=== PATIENT | male | born 1940 | race Caucasian/White ===

== ENCOUNTER 2017-05-12 19:34 | Emergency (ER) | payer OTHER, BC ==
[2017-05-12 19:58] VITALS: BP 150/88; PULSE 66; TEMP 97.3; BMI 26.3
--- NOTE | 2017-05-12 20:01 | PDOC ---
History of Present Illness - General History Source: Patient Exam Limitations: No Limitations - History of Present Illness Initial Comments: 05/12/17 20:10 The patient is a 76 year old male with significant past medical history of prostate CA, CAD, hypertension, hyperlipidemia, thyroid disease, fatty liver, diverticulosis, GERD, esophagitis, hemorrhoids, and colon polyps who presents to the ED for feeling jittery prior to arrival. Patient reports he was in his usual state of health while gardening around the house when he suddenly felt jittery. Denies lightheadedness, diaphoresis, SOB, chest pain, palpitations, jaw pain, shoulder pain, arm pain, leg swelling, nausea, or vomiting. At time of evaluation, he states he is currently feeling chills, but no fever. The patient denies cough, abdominal pain, and diarrhea. Allergies: NKDA Social History: No alcohol, tobacco, or drug use reported. Past Surgical History: s/p cardiac stents x3 PCP: Dr. Leobardo Herrera <Erika Durán - Last Filed: 05/12/17 21:21> - General History Source: Patient <Lisandro Dunbar - Last Filed: 05/12/17 21:51> - General Chief Complaint: Weakness Stated Complaint: DEHYDRATION Time Seen by Provider: 05/12/17 19:53 Past History <Erika Durán - Last Filed: 05/12/17 21:21> - Past Medical History Anemia: No Asthma: No Cancer: Yes (PROSTATE) Cardiac Disorders: Yes (CAD) CVA: No CHF: No Dementia: No Diabetes: No GI Disorders: Yes (DIVERTICULOSIS;GERD;ESOPHAGITIS;GASTRTIS;H/H;HEMOROIDS;COLON POLYPS) Disorders: No HTN: Yes Hypercholesterolemia: Yes Liver Disease: Yes (FATTY LIVER) Seizures: No Thyroid Disease: No - Surgical History Abdominal Surgery: No Cardiac Surgery: Yes (STENTS X 3) Cholecystectomy: No Lung Surgery: No Neurologic Surgery: No - Family Disease History Family Disease History: Heart Disease: Father, Mother - Immunization History Immunization Up to Date: Yes - Psycho/Social/Smoking Cessation Hx Anxiety: Yes Suicidal Ideation: No Smoking History: Never smoked Have you smoked in the past 12 months: No Hx Alcohol Use: No Drug/Substance Use Hx: No Substance Use Type: None Hx Substance Use Treatment: No <Lisandro Dunbar Last Filed: 05/12/17 21:51> - Past Medical History Allergies/Adverse Reactions: Allergies Allergy/AdvReac Type Severity Reaction Status Date / Time No Known Allergies Allergy Verified 05/12/17 19:48 Home Medications: Ambulatory Orders Aspirin 81 mg PO DAILY 03/25/14 Levothyroxine [Synthroid -] 25 mcg PO DAILY 03/25/14 Metoprolol Succinate [Toprol XL -] 25 mg PO DAILY 03/25/14 Rosuvastatin Calcium [Crestor] 20 mg PO DAILY 03/25/14 Review of Systems - Review of Systems Able to Perform ROS?: Yes Comments:: 05/12/17 20:10 CONSTITUTIONAL: +chills, jittery Absent: fever, diaphoresis, generalized weakness, malaise, loss of appetite HEENT: Absent: rhinorrhea, nasal congestion, throat pain, throat swelling, difficulty swallowing, mouth swelling, ear pain, eye pain, visual Changes CARDIOVASCULAR: Absent: chest pain, syncope, palpitations, irregular heart rate, lightheadedness , peripheral edema RESPIRATORY: Absent: cough, shortness of breath, dyspnea with exertion, orthopnea, wheezing, stridor, hemoptysis GASTROINTESTINAL: Absent: abdominal pain, abdominal distension, nausea, vomiting, diarrhea, constipation, melena, hematochezia GENITOURINARY: Absent: dysuria, frequency, urgency, hesitancy, hematuria, flank pain, genital pain MUSCULOSKELETAL: Absent: myalgia, arthralgia, joint swelling SKIN: Absent: rash, itching, pallor NEUROLOGIC: Absent: headache, focal weakness or paresthesias, dizziness, unsteady gait, seizure, mental status changes, bladder or bowel incontinence <Erika Durán - Last Filed: 05/12/17 21:21> *Physical Exam - Vital Signs Last Vital Signs Temp Pulse Resp BP Pulse Ox 97.3 F L 66 18 150/88 100 05/12/17 19:49 05/12/17 19:49 05/12/17 19:49 05/12/17 19:49 05/12/17 19:49 - Physical Exam Comments: 05/12/17 20:10 GENERAL: Well developed, well nourished. Awake and alert. No acute distress. HEENT: Normocephalic, atraumatic. PERRLA, EOMI. Moist mucous membranes. Oropharynx is clear. NECK: Supple. Full ROM. No JVD. Carotid pulses 2+ and symmetric, without bruits. No thyromegaly. No lymphadenopathy. CARDIOVASCULAR: Regular rate and rhythm. No murmurs, rubs, or gallops. Distal pulses are 2+ and symmetric. PULMONARY: No evidence of respiratory distress. Lungs clear to auscultation bilaterally. No wheezing, rales or rhonchi. ABDOMINAL: Soft. Non-tender. Non-distended. No rebound or guarding. Normoactive bowel sounds. MUSCULOSKELETAL Normal range of motion at all joints. No bony deformities or tenderness. No CVA tenderness. EXTREMITIES: No cyanosis. No clubbing. No edema. No calf tenderness. SKIN: Warm and dry. Normal capillary refill. No rashes. No jaundice. NEUROLOGICAL: Alert, awake, appropriate. Cranial nerves 2-12 intact. Moving all extremities. No gross neurological deficits. <Erika Durán - Last Filed: 05/12/17 21:21> - Vital Signs Last Vital Signs Temp Pulse Resp BP Pulse Ox 97.3 F L 66 18 150/88 100 05/12/17 19:49 05/12/17 19:49 05/12/17 19:49 05/12/17 19:49 05/12/17 19:49 <Lisandro Dunbar - Last Filed: 05/12/17 21:51> Heart Score/ECG Review - ECG Impressions Comment:: 05/12/17 21:21 NSR @60bpm L anterior fascicular block Abnormal ECG <Erika Durán - Last Filed: 05/12/17 21:21> ED Treatment Course - LABORATORY CBC & Chemistry Diagram: 05/12/17 21:02 05/12/17 21:02 <Erika Durán - Last Filed: 05/12/17 21:21> - LABORATORY CBC & Chemistry Diagram: 05/12/17 21:02 05/12/17 21:02 <Lisandro Dunbar - Last Filed: 05/12/17 21:51> Medical Decision Making - Medical Decision Making 05/12/17 21:50 Dr. Dunbar: The scribe's documentation has been prepared under my direction and personally reviewed by me in its entirery. I confirm that the note above accurately reflects all work, treatment, procedures, and medical decision making performed by me. All studies Return to be negative. Patient will Be discharged. Advised to follow up with pcp if symptoms don't improve. Advised to avoid the heat <Lisandro Dunbar - Last Filed: 05/12/17 21:51> *DC/Admit/Observation/Transfer - Attestations Scribe Attestion: 05/12/17 20:11 Documentation prepared by Erika Durán, acting as medical record transcriber for Lisandro Dunbar MD/DO. <Erika Durán - Last Filed: 05/12/17 21:21> - Discharge Dispostion Admit: No <Lisandro Dunbar - Last Filed: 05/12/17 21:51> Diagnosis at time of Disposition: Lightheadedness - Discharge Dispostion Disposition: HOME Condition at time of disposition: Stable - Referrals Referrals: Leobardo Herrera MD [Primary Care Provider] - - Patient Instructions Printed Discharge Instructions: DI for Muscle Weakness Additional Instructions: Follow up with your doctor if symptoms don't improve. Return if you don't feel better. Avoid the heat for the next several days.
[2017-05-12] MEDS ORDERED: SODIUM CHLORIDE 1,000 ML IV STA (20:02)
[2017-05-12 20:45] LABS: URINE APPEARANCE CLEAR; URINE BILIRUBIN NEGATIVE (NEGATIVE); URINE BLOOD NEGATIVE (NEGATIVE); URINE COLOR COLORLESS; URINE GLUCOSE (UA) NEGATIVE (NEGATIVE); URINE KETONE NEGATIVE (NEGATIVE); URINE LEUK ESTERASE NEGATIVE (NEGATIVE); URINE NITRITE NEGATIVE (NEGATIVE); URINE PROTEIN NEGATIVE (NEGATIVE); URINE UROBILINOGEN NEGATIVE E.U./dl (0.2-1.0)
[2017-05-12 21:11] LABS: BASOPHIL 0.3 % (0-2.0); EOSINOPHIL 0.8 % (0-4.5); MCH 29.8 pg (25.7-33.7); MCHC 32.9 g/dl (32.0-35.9); MEAN CELL VOLUME 90.8 fl (80-96); MEAN PLT VOLUME 10.4 fl (7.5-11.1); NEUTROPHILS 74.7 % (42.8-82.8); PLATELET COUNT 87 K/MM3 (134-434); RDW 13.6 % (11.9-15.9); WHITE BLOOD COUNT 5.2 K/mm3 (4.0-10.0)
[2017-05-12 21:31] LABS: INR 1.04 (0.82-1.09); PROTHROMBIN TIME (PATIENT) 11.4 SEC (9.98-11.88)
[2017-05-12 21:37] LABS: ALBUMIN 4.1 g/dl (3.4-5.0); ANION GAP 8 (8-16); BILIRUBIN,TOTAL 0.6 mg/dL (0.2-1.0); CALCIUM 8.8 mg/dL (8.5-10.1); CO2 28 mmol/L (21-32); COCKROFT - GAULT 65.62; GLUCOSE,RANDOM 109 mg/dL (74-106); MAGNESIUM 2.4 mg/dL (1.8-2.4); SGOT/AST 34 U/L (15-37); SGPT/ALT 29 U/L (12-78); TOT PROT 6.9 g/dl (6.4-8.2)
[2017-05-12 21:41] LABS: ALK PHOS 80 U/L (45-117); TROPONIN I < 0.02 ng/ml (0.00-0.05)
[2017-05-12 22:18] LABS: PLATELET ESTIMATE DECREASED (NORMAL)
--- NOTE | 2017-05-13 10:51 | EKG ---
Test Reason : Blood Pressure : / mmHG Vent. Rate : 060 BPM Atrial Rate : 060 BPM P-R Int : 178 ms QRS Dur : 102 ms QT Int : 442 ms P-R-T Axes : 024 -55 037 degrees QTc Int : 442 ms NORMAL SINUS RHYTHM LEFT ANTERIOR FASCICULAR BLOCK ABNORMAL ECG WHEN COMPARED WITH ECG OF 31-JUL-2014 02:26, NO SIGNIFICANT CHANGE WAS FOUND Confirmed by RADHA RODRIGUEZ MD ([id number]) on 05/13/2017 10:50:41 AM Referred By: Confirmed By:RADHA RODRIGUEZ MD
== END 2017-05-12 21:57 | disposition home or self-care (01) ==
LOC: JER 19:34
PROC: 3E0337Z Introduction of Electrolytic and Water Balance Substance into Peripheral Vein, Percutaneous Approach (ICD-10-PCS; principal; 2017-05-12)
DX: R42 Dizziness and giddiness (principal); I10 Essential (primary) hypertension; I25.10 Atherosclerotic heart disease of native coronary artery without angina pectoris; E78.5 Hyperlipidemia, unspecified; E07.9 Disorder of thyroid, unspecified; K76.0 Fatty (change of) liver, not elsewhere classified; K21.9 Gastro-esophageal reflux disease without esophagitis
CPT/HCPCS: 36415; 80053; 81003; 82550; 82553; 83690; 83735; 84484; 85025; 85610; 93005; 93010; 96360; 99283-25

== ENCOUNTER 2018-09-22 21:57 | Observation (INO) | payer OTHER, BC ==
[2018-09-22 22:16] VITALS: BMI 26.6
[2018-09-22 23:22] LABS: BASO % 0.3 % (0-2.0); EOS % 2.1 % (0-4.5); HEMATOCRIT 42.5 % (35.4-49); LYMPH % 28.4 % (8-40); MCH 30.3 pg (25.7-33.7); MCHC 32.9 g/dl (32.0-35.9); MEAN CELL VOLUME 92.1 fl (80-96); MEAN PLT VOLUME 11.5 fl (7.5-11.1); NEUT % 59.2 % (42.8-82.8); PLATELET COUNT 96 K/MM3 (134-434); RBC 4.61 M/mm3 (4.00-5.60); RDW 13.3 % (11.9-15.9); WHITE BLOOD COUNT 4.3 K/mm3 (4.0-10.0)
[2018-09-22 23:34] LABS: PROTHROMBIN TIME (PATIENT) 11.8 SEC (9.7-13.0)
[2018-09-22] MEDS ORDERED: ASPIRIN 325 MG ENTERIC COATED TABLET (FP) PO ONE (23:35)
[2018-09-22] MEDS ORDERED: MAG HYDROX/AL HYDROX/SIMETH 30 ML UNIT-DOSE CUP PO ONE (23:35)
--- NOTE | 2018-09-22 23:51 | PDOC ---
History of Present Illness - General Exam Limitations: No Limitations - History of Present Illness Initial Comments: 09/23/18 01:36 Patient is a 78 year old male with a significant past medical history of prostate CA, CAD, hypertension, hyperlipidemia, thyroid disease, fatty liver, diverticulosis, GERD, esophagitis, hemorrhoids, and colon polyps, who presents to the ED with complaints of nausea that began x2 days ago. Patient reports experiencing intermittent episodes of nausea, as well as associated symptoms of abdominal distention and general sick feeling in his gut. He reports the last time he felt this sensation in his gut, he ended up getting x3 cardiac stents placed, prompting him to come into the ED for further evaluation. Patient reports normal food and liquid intake and states his last bowel movement was earlier today. Denies chest pain, Sob. Denies nausea, vomiting. Denies contact with sick individuals, out of state travelling. Denies dysuria,hematuria. Denies constipation, diarrhea. Denies trauma to affected area. Allergies: NKDA Social History: No alcohol, tobacco, or drug use reported. Past Surgical History: s/p cardiac stents x3 PCP: Dr. Leobardo Herrera <Atif Banks - Last Filed: 09/23/18 01:36> <Daylin Esposito - Last Filed: 09/23/18 04:17> - General Chief Complaint: Nausea Stated Complaint: NAUSEA/chest tightness Time Seen by Provider: 09/22/18 23:21 Past History <Atif Banks - Last Filed: 09/23/18 01:36> - Past Medical History Anemia: No Asthma: No Cancer: Yes (PROSTATE) Cardiac Disorders: Yes (CAD, 3 Stents placed 3 years ago) CVA: No COPD: No CHF: No Dementia: No Diabetes: No GI Disorders: Yes (DIVERTICULOSIS;GERD;ESOPHAGITIS;GASTRTIS;H/H;HEMOROIDS;COLON POLYPS) Disorders: No HTN: Yes Hypercholesterolemia: Yes Liver Disease: Yes (FATTY LIVER) Seizures: No Thyroid Disease: No - Surgical History Abdominal Surgery: No Cardiac Surgery: Yes (STENTS X 3) Cholecystectomy: No Lung Surgery: No Neurologic Surgery: No - Family Disease History Family Disease History: Heart Disease: Father, Mother - Immunization History Immunization Up to Date: Yes - Suicide/Smoking/Psychosocial Hx Smoking History: Never smoked Have you smoked in the past 12 months: No Information on smoking cessation initiated: No Hx Alcohol Use: No Drug/Substance Use Hx: No Substance Use Type: None Hx Substance Use Treatment: No <Daylin Esposito - Last Filed: 09/23/18 04:17> - Past Medical History Allergies/Adverse Reactions: Allergies Allergy/AdvReac Type Severity Reaction Status Date / Time No Known Allergies Allergy Verified 09/22/18 22:16 Home Medications: Ambulatory Orders Aspirin 81 mg PO DAILY 03/25/14 Levothyroxine [Synthroid -] 25 mcg PO DAILY 03/25/14 Metoprolol Succinate [Toprol XL -] 25 mg PO DAILY 03/25/14 Rosuvastatin Calcium [Crestor] 20 mg PO DAILY 03/25/14 Amlodipine Besylate 5 mg PO DAILY 09/22/18 Review of Systems - Review of Systems Able to Perform ROS?: Yes Comments:: 09/23/18 01:37 See HPI. All other systems reviewed and unremarkable <Atif Banks - Last Filed: 09/23/18 01:36> *Physical Exam - Vital Signs Last Vital Signs Temp Pulse Resp BP Pulse Ox 98.5 F 62 16 167/70 100 09/22/18 22:14 09/22/18 22:14 09/22/18 22:14 09/22/18 22:14 09/22/18 22:14 - Physical Exam Comments: 09/23/18 01:36 General Physical Exam: NAD EOMI, DYLON MMM, OP WNL NCAT, no midline cervical tenderness RRR, nl s1/s2, no m/r/g CTABL, no w/r/r Soft, NTND No edema, WWP, no rash Neuro grossly intact, gait WNL, moving all 4 A&O x 3, mood/affect WNL. <Atif Banks - Last Filed: 09/23/18 01:36> - Vital Signs Last Vital Signs Temp Pulse Resp BP Pulse Ox 98.5 F 62 16 167/70 100 09/22/18 22:14 09/22/18 22:14 09/22/18 22:14 09/22/18 22:14 09/22/18 22:14 <Daylin Esposito - Last Filed: 09/23/18 04:17> ED Treatment Course - LABORATORY CBC & Chemistry Diagram: 09/22/18 23:00 09/22/18 23:00 - ADDITIONAL ORDERS Additional order review: Laboratory Results 09/22/18 09/22/18 23:00 23:00 PT with INR 11.80 INR 1.00 Sodium 136 Potassium 4.0 Chloride 100 Carbon Dioxide 28 Anion Gap 7 L BUN 14 Creatinine 0.9 Creat Clearance w eGFR > 60 Random Glucose 87 Calcium 8.9 Total Bilirubin 0.6 AST 36 ALT 30 Alkaline Phosphatase 84 Creatine Kinase 129 Troponin I < 0.02 B-Natriuretic Peptide 223.1 Total Protein 7.4 Albumin 4.3 Lipase 139 09/22/18 23:00 RBC 4.61 MCV 92.1 MCHC 32.9 RDW 13.3 MPV 11.5 H D Neutrophils % 59.2 D Lymphocytes % 28.4 D Monocytes % 10.0 Eosinophils % 2.1 D Basophils % 0.3 <Atif Banks - Last Filed: 09/23/18 01:36> - LABORATORY CBC & Chemistry Diagram: 09/22/18 23:00 09/22/18 23:00 - ADDITIONAL ORDERS Additional order review: Laboratory Results 09/22/18 23:00 PT with INR 11.80 INR 1.00 09/22/18 23:00 RBC 4.61 MCV 92.1 MCHC 32.9 RDW 13.3 MPV 11.5 H D Neutrophils % 59.2 D Lymphocytes % 28.4 D Monocytes % 10.0 Eosinophils % 2.1 D Basophils % 0.3 <Daylin Esposito - Last Filed: 09/23/18 04:17> Medical Decision Making - Medical Decision Making 09/22/18 23:47 78yoM hx of CAD, stent x 3, GERD, esophagitis, HTN presnets w/ 3d of intermittent "sick" feeling in his epigastric area and abd distension after reportedly eating a large meal. SYmptoms have been progressive over last few days. Pt states that the last time he felt like this, he was admitted and 3 stents were placed. - labs - ekg - cxr - cardaic moniotr - maalox, ASA - admit for serial troponins and further cardaic testing. <Daylin Esposito - Last Filed: 09/23/18 04:17> *DC/Admit/Observation/Transfer - Attestations Scribe Attestion: 10/24/18 01:37 Documentation prepared by Atif Banks, acting as bilingual medical assistant for Daylin Esposito MD. <Atif Banks - Last Filed: 09/23/18 01:36> - Discharge Dispostion Decision to Admit order: Yes <Daylin Esposito - Last Filed: 09/23/18 04:17> Diagnosis at time of Disposition: Chest pain - Discharge Dispostion Condition at time of disposition: Stable - Referrals Referrals: Leobardo Herrera MD [Primary Care Provider] - - Patient Instructions - Post Discharge Activity
[2018-09-22 23:58] LABS: ALBUMIN 4.3 g/dl (3.4-5.0); ALK PHOS 84 U/L (45-117); ANION GAP 7 MMOL/L (8-16); BILIRUBIN,TOTAL 0.6 mg/dL (0.2-1); BLOOD UREA NITROGEN 14 mg/dL (7-18); CALCIUM 8.9 mg/dL (8.5-10.1); CHLORIDE 100 mmol/L (98-107); CO2 28 mmol/L (21-32); CREATININE 0.9 mg/dL (0.55-1.3); GLUCOSE,RANDOM 87 mg/dL (74-106); LIPASE 139 U/L (73-393); N-TERMINAL BNP 223.1 pg/ml (5-450); SGOT/AST 36 U/L (15-37); SGPT/ALT 30 U/L (13-61); SODIUM 136 mmol/L (136-145); TOT PROT 7.4 g/dl (6.4-8.2)
[2018-09-23] MEDS ORDERED: RANITIDINE HCL 150 MG TABLET (FP) PO ONE (03:05)
[2018-09-23] MEDS ORDERED: RANITIDINE HCL 150 MG TABLET (FP) ONE (03:14)
[2018-09-23] MEDS ORDERED: ASPIRIN 325 MG ENTERIC COATED TABLET (FP) ONE (03:14)
[2018-09-23] MEDS ORDERED: MAG HYDROX/AL HYDROX/SIMETH 30 ML UNIT-DOSE CUP ONE (03:15)
--- NOTE | 2018-09-23 05:36 | HP ---
CHIEF COMPLAINT: abdominal discomfort PCP: HISTORY OF PRESENT ILLNESS: Patient is a 78 y/o male with a history of prostate CA, CAD, HTN, HLD, and hypothyroidism who presents with abdominal discomfort. Patient reports he had a large dinner two nights ago and an acidic breakfast yesterday. Afterward he felt a mid sternal discomfort. He reports he had the same feeling in 2009 where he then needed three stents. He mostly feels anxious about the discomfort because it is similar to the CAD. He denies any chest pain, pressure, tightness , diaphoresis, numbness or tingling. He denies nausea, vomiting, diarrhea, or constipation. Patient excercises on the treadmill 30 minutes a day and denies any angina. He used to take pantoprazole for GERD, but stopped taking it years ago. ER course was notable for: (1) (2) (3) Recent Travel: PAST MEDICAL HISTORY: prostate CA, CAD, HTN, HLD, and hypothyroidism PAST SURGICAL HISTORY: Cardiac stent x 3 in 2009, TURP 2 years ago Social History: Smoking: Alcohol: Drugs: Family History: Allergies No Known Allergies Allergy (Verified 09/22/18 22:16) HOME MEDICATIONS: Home Medications Medication Instructions Recorded Aspirin 81 mg PO DAILY 03/25/14 Levothyroxine [Synthroid -] 25 mcg PO DAILY 03/25/14 Metoprolol Succinate [Toprol XL -] 25 mg PO DAILY 03/25/14 Rosuvastatin Calcium [Crestor] 20 mg PO DAILY 03/25/14 Amlodipine Besylate 5 mg PO DAILY 09/22/18 REVIEW OF SYSTEMS CONSTITUTIONAL: Absent: fever, chills, diaphoresis, generalized weakness, malaise, loss of appetite, weight change HEENT: Absent: rhinorrhea, nasal congestion, throat pain, throat swelling, difficulty swallowing, mouth swelling, ear pain, eye pain, visual changes CARDIOVASCULAR: Absent: chest pain, syncope, palpitations, irregular heart rate, lightheadedness , peripheral edema RESPIRATORY: Absent: cough, shortness of breath, dyspnea with exertion, orthopnea, wheezing, stridor, hemoptysis GASTROINTESTINAL: abdominal discomfort Absent: abdominal pain, abdominal distension, nausea, vomiting, diarrhea, constipation, melena, hematochezia GENITOURINARY: Absent: dysuria, frequency, urgency, hesitancy, hematuria, flank pain, genital pain MUSCULOSKELETAL: Absent: myalgia, arthralgia, joint swelling, back pain, neck pain SKIN: Absent: rash, itching, pallor HEMATOLOGIC/IMMUNOLOGIC: Absent: easy bleeding, easy bruising, lymphadenopathy, frequent infections ENDOCRINE: Absent: unexplained weight gain, unexplained weight loss, heat intolerance, cold intolerance NEUROLOGIC: Absent: headache, focal weakness or paresthesias, dizziness, unsteady gait, seizure, mental status changes, bladder or bowel incontinence PSYCHIATRIC: Absent: anxiety, depression, suicidal or homicidal ideation, hallucinations. PHYSICAL EXAMINATION Vital Signs - 24 hr 09/22/18 22:14 Temperature 98.5 F Pulse Rate 62 Respiratory 16 Rate Blood Pressure 167/70 O2 Sat by Pulse 100 Oximetry (%) GENERAL: Awake, alert, and fully oriented, in no acute distress. HEAD: Normal with no signs of trauma. EYES: Pupils equal, round and reactive to light, extraocular movements intact, EARS, NOSE, THROAT: Moist mucous membranes. NECK: Normal range of motion, supple without lymphadenopathy, JVD, LUNGS: Breath sounds equal, clear to auscultation bilaterally. No wheezes, and no crackles. No accessory muscle use. HEART: Regular rate and rhythm, normal S1 and S2 without murmur, rub or gallop. ABDOMEN: Soft, nontender, not distended, normoactive bowel sounds, no guarding, no rebound, no masses. MUSCULOSKELETAL: Normal range of motion at all joints. No bony deformities or tenderness. LOWER EXTREMITIES: 2+ pulses, warm, well-perfused. No calf tenderness. No peripheral edema. NEUROLOGICAL: Normal speech. PSYCHIATRIC: Cooperative. Good eye contact. Appropriate mood and affect. SKIN: Warm, dry, normal turgor, no rashes or lesions noted, normal capillary refill. CBC, BMP 09/22/18 23:00 09/22/18 23:00 ASSESSMENT/PLAN: Patient is a 78 y/o male with a history of prostate CA, CAD, HTN, HLD, and hypothyroidism who presents with abdominal discomfort. 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 Lopez #hypothyroidism - continue levothyroxine 25 mcg - f/u TSH #HTN - amlodipine 10 mg daily #Chronic thryombocytopenia - continue to monitor - previous visits platelets in the 90's Visit type - Emergency Visit Emergency Visit: Yes ED Registration Date: 09/23/18 Care time: The patient presented to the Emergency Department on the above date and was hospitalized for further evaluation of their emergent condition. - New Patient This patient is new to me today: Yes Date on this admission: 09/23/18 - Critical Care Critical Care patient: No
--- NOTE | 2018-09-23 06:25 | PN ---
Teaching Attending Note Name of Resident: Damaris Ocampo ATTENDING PHYSICIAN STATEMENT I saw and evaluated the patient. I reviewed the resident's note and discussed the case with the resident. I agree with the resident's findings and plan as documented. SUBJECTIVE: Seen and examined; 78 y/o CM with a PMH of CAD, HTN, HLD presents to the ER with sx suspicious to him for ACS. In 2009 he had some sort of cardiac event that lead to him getting 3 total stents that were done at [facility]. He had a stress test shortly thereafter and has not since had any procedures. He is compliant with his ASA, Statin, and BB. Pain was characterized as indigestion symptoms at his epigastric region; nothing makes the pain better or worse, was not doing activity when it happened. Not currently having pain. He never had any chest pain, persay, but this was the same exact atypical presentation he had at that juncture. EKG nsr without any significant ST-T changes, troponin negative in ER. Given his history and the presentation and the time since his last stress test will admit for stress test. Found incidentally on labs to have thrombocytopenia which has been present in our system since at least 2013. PMH: As stated PSH: No cardiopulmonary procedures FH: Asked and noncontributory Social: Very active; not a current smoker or drinker OBJECTIVE: VSS, labs reviewed NAD, resting in bed, AAO RRR s1/2 no mgr Lungs CTAB with sym exp NT ND +BS No edema, no JVD ASSESSMENT AND PLAN: 1) Rule Out ACS (epigastric discomfort) -Atypical sx but given the fact that this was how his first event presented will work this up as this sensation could be his anginal equivelant. Trend troponin, monitor telemetry. Exercise ST in the AM. -Continue home CAD meds -Start protonix 40 PO QD in case this is purely indigestion. 2) H/O CAD s/p PCI -Continuing home ASA, statin, BB 3) HTN -Increasing amlodipine to 10 4) HLD -Check lipids 5) Chronic Thrombocytopenia -Known since 2013; trend. Check peripheral smear, HIV, HCV. Followup as OP. No bleeding and known chronic issue that isn't acutely worse. Full Code Provided negative stress test and cardiac workup and resolution of his sx he should be able to be DC in <24 hours
[2018-09-23] MEDS: LEVOTHYROXINE NA 25 MCG TABLET (FP) PO SCH ×2 (08:46→10:35)
[2018-09-23] MEDS ORDERED: ASPIRIN 81 MG CHEWABLE TABLETS ONE (09:35)
[2018-09-23] MEDS ORDERED: PANTOPRAZOLE 40 MG TABLET (FP) ONE (09:35)
[2018-09-23] MEDS ORDERED: amLODIPine BESYLATE 5 MG TABLET (FP) ONE (09:36)
[2018-09-23] MEDS ORDERED: metoPROLOL SUCCINATE 25 MG TAB.SR.24H (FP) PO SCH (10:00)
[2018-09-23] MEDS ORDERED: amLODIPine BESYLATE 10 MG TABLET (FP) PO SCH (10:00)
[2018-09-23] MEDS ORDERED: PANTOPRAZOLE 40 MG TABLET (FP) PO SCH (10:00)
[2018-09-23] MEDS ORDERED: ASPIRIN 81 MG CHEWABLE TABLETS PO SCH (10:00)
[2018-09-23] MEDS ORDERED: LEVOTHYROXINE NA 25 MCG TABLET (FP) ONE (10:09)
--- NOTE | 2018-09-23 10:12 | CON.CARD ---
Consult Consult Specialty:: Cardiology Referred by:: Dayo Reason for Consultation:: chest pain - History of Present Illness Chief Complaint: chest pain History of Present Illness: 78M h/o CAD s/p PCI in 2010, HTN, HLD p/w chest discomort. He felt like he had indigestion and upper abdominal discomfort at rest, which was similar to presentation in 2010 where he received 3 stents. EKG unremarkable, trop neg x 2 in ER. BP elevated, amlodipine was increased to 10 mg daily. Currently asymptomatic, no chest pain, dyspnea, palps, dizziness. Notes he used to be on PPI for reflux, he stopped this several months ago. has been eating moer acidic foods that trigger reflux and episodes of abd discomfort over lsat two days have been after eating large meals. - History Source History Provided By: Patient Limitations to Obtaining History: No Limitations - Past Medical History Cardio/Vascular: Yes: CAD - Alcohol/Substance Use Hx Alcohol Use: No - Smoking History Smoking history: Never smoked Have you smoked in the past 12 months: No Home Medications - Allergies Allergies/Adverse Reactions: Allergies Allergy/AdvReac Type Severity Reaction Status Date / Time No Known Allergies Allergy Verified 09/22/18 22:16 - Home Medications Home Medications: Ambulatory Orders Aspirin 81 mg PO DAILY 03/25/14 Levothyroxine [Synthroid -] 25 mcg PO DAILY 03/25/14 Metoprolol Succinate [Toprol XL -] 25 mg PO DAILY 03/25/14 Rosuvastatin Calcium [Crestor] 20 mg PO DAILY 03/25/14 Amlodipine Besylate 5 mg PO DAILY 09/22/18 Family Disease History - Family Disease History Family History: Unremarkable Review of Systems - Review of Systems Constitutional: reports: No Symptoms Eyes: reports: No Symptoms HENT: reports: No Symptoms Neck: reports: No Symptoms Cardiovascular: reports: No Symptoms Respiratory: reports: No Symptoms Gastrointestinal: reports: Abdominal Pain Genitourinary: reports: No Symptoms Musculoskeletal: reports: No Symptoms Integumentary: reports: No Symptoms Neurological: reports: No Symptoms Endocrine: reports: No Symptoms Hematology/Lymphatic: reports: No Symptoms Psychiatric: reports: No Symptoms Vital Signs: Vital Signs Temperature 98.4 F 09/23/18 08:00 Pulse Rate 58 L 09/23/18 08:00 Respiratory Rate 18 09/23/18 08:00 Blood Pressure 152/76 09/23/18 08:00 O2 Sat by Pulse Oximetry (%) 98 09/23/18 05:30 Constitutional: Yes: No Distress, Calm Eyes: Yes: Conjunctiva Clear, EOM Intact HENT: Yes: Atraumatic, Normocephalic Neck: Yes: Supple, Trachea Midline Respiratory: Yes: Regular, CTA Bilaterally Gastrointestinal: Yes: Normal Bowel Sounds, Soft Renal/: Yes: WNL Cardiovascular: Yes: Regular Rate and Rhythm JVD: No Carotid Bruit: No PMI: Non-Displaced Heart Sounds: Yes: S1, S2 Musculoskeletal: No: Back Pain Extremities: No: Cyanosis Edema: No Peripheral Pulses WNL: Yes Peripheral Pulses: 2+ Left Doralis Pedis, 2+ Right Dorsalis Pedis Integumentary: No: Jaundice Neurological: Yes: Alert, Oriented ...Motor Strength: WNL Psychiatric: Yes: Alert, Oriented - Other Data Labs, Other Data: CBC, BMP 09/22/18 23:00 09/22/18 23:00 INR, PTT INR 1.00 (0.83-1.09) 09/22/18 23:00 Troponin, BNP 09/22/18 09/23/18 23:00 03:30 Troponin I < 0.02 < 0.02 B-Natriuretic Peptide 223.1 Troponin, BNP 09/22/18 09/23/18 23:00 03:30 Troponin I < 0.02 < 0.02 B-Natriuretic Peptide 223.1 Assessment/Plan CXR: no acute process EKG: sinus, LAFB 78M h/o CAD s/p PCI in 2009, HTN, HLD p/w chest discomort Chest discomfort - trop neg x 2, EKG stable compared to prior - discomfort now resolved - h/o GERD and has been off PPI, recent episodes related to large meals and acidic foods. PPI restarted as well - change to nuc stress given h/o CAD and similar to prior symptoms - if stress test benign no further inpatient work up, follow up with Dr. Garces CAD - continue aspirin, statin, bb HTN - amlodipine increased to 10 mg daily today, observe trend - continue metoprolol HLD - continue crestor
--- NOTE | 2018-09-23 11:26 | EKG ---
Test Reason : Blood Pressure : / mmHG Vent. Rate : 060 BPM Atrial Rate : 060 BPM P-R Int : 172 ms QRS Dur : 104 ms QT Int : 454 ms P-R-T Axes : 021 -47 036 degrees QTc Int : 454 ms NORMAL SINUS RHYTHM LEFT ANTERIOR FASCICULAR BLOCK ABNORMAL ECG WHEN COMPARED WITH ECG OF 12-MAY-2017 20:38, NO SIGNIFICANT CHANGE WAS FOUND Confirmed by GA FONTANEZ, YAZAN ([id number]) on 09/23/2018 11:26:19 AM Referred By: Confirmed By:YAZAN KOROMA MD
--- NOTE | 2018-09-23 11:56 | PN ---
Progress Note, Physician - Current Medication List Current Medications: Active Medications Amlodipine Besylate (Norvasc -) 10 mg PO DAILY [facility] Last Admin: 09/23/18 09:37 Dose: 10 mg Aspirin (Asa -) 81 mg PO DAILY [facility] Last Admin: 09/23/18 09:37 Dose: 81 mg Levothyroxine Sodium (Synthroid -) 25 mcg PO DAILY@0700 [facility] Last Admin: 09/23/18 10:35 Dose: 25 mcg Metoprolol Succinate (Toprol Xl -) 12.5 mg PO DAILY [facility] Last Admin: 09/23/18 09:37 Dose: 12.5 mg Pantoprazole Sodium (Protonix -) 40 mg PO DAILY [facility] Last Admin: 09/23/18 09:37 Dose: 40 mg Rosuvastatin Calcium (Crestor -) 20 mg PO [facility] - Objective Vital Signs: Vital Signs Temperature 98.4 F 09/23/18 08:00 Pulse Rate 58 L 09/23/18 08:00 Respiratory Rate 18 09/23/18 08:00 Blood Pressure 152/76 09/23/18 08:00 O2 Sat by Pulse Oximetry (%) 98 09/23/18 05:30 Labs: CBC, BMP 09/22/18 23:00 09/22/18 23:00 INR, PTT INR 1.00 (0.83-1.09) 09/22/18 23:00
[2018-09-23] MEDS ORDERED: REGADENOSON 0.4 MG/5 ML PRE-FILLED SYRINGE IVPUSH ONE ×2 (12:15→13:48)
--- NOTE | 2018-09-23 16:59 | DS ---
Physical Examination Vital Signs: Vital Signs Temperature 98.4 F 09/23/18 08:00 Pulse Rate 58 L 09/23/18 08:00 Respiratory Rate 18 09/23/18 08:00 Blood Pressure 152/76 09/23/18 08:00 O2 Sat by Pulse Oximetry (%) 98 09/23/18 05:30 Constitutional: Yes: Well Nourished, No Distress, Calm Cardiovascular: Yes: WNL, Regular Rate and Rhythm. No: Murmur Respiratory: Yes: WNL, Regular, CTA Bilaterally. No: Accessory Muscle Use, SOB , Tachypnea, Wheezes Gastrointestinal: Yes: WNL, Normal Bowel Sounds, Soft. No: Distention, Tenderness Renal/: Yes: WNL Musculoskeletal: Yes: WNL Edema: No Neurological: Yes: WNL, Alert, Oriented ...Motor Strength: WNL Psychiatric: Yes: WNL, Alert Labs: CBC, BMP 09/22/18 23:00 09/22/18 23:00 Discharge Summary Reason For Visit: NAUSEA Current Active Problems Chest pain (Acute) Hospital Course: 78 year old male pmh significant for CAD s/p stent in 2009 admitted for evaluation of chest pain. All cardiac work up negative. Pt symptomatic. Nuclear stress test negative for ischemic findings. Amlodipine increased to 10mg for better bp control. Otherwise, vitals stable, labs unremarkable. Pt is medically stable for discharge home. Outpt follow up recommended Condition: Stable - Instructions Diet, Activity, Other Instructions: continue home meds as directed by pcp amlodipine increased for better bp control protonix daily f/u as directed Referrals: Leobardo Herrera MD [Primary Care Provider] - 1 Week Jimmy Garces MD [Staff Physician] - 1 Week Disposition: HOME - Home Medications Comprehensive Discharge Medication List: Ambulatory Orders Aspirin 81 mg PO DAILY 03/25/14 Levothyroxine [Synthroid -] 25 mcg PO DAILY 03/25/14 Rosuvastatin Calcium [Crestor] 20 mg PO DAILY 03/25/14 Amlodipine Besylate 10 mg PO DAILY 09/22/18 Metoprolol Succinate [Toprol XL -] 12.5 mg PO DAILY tab.sr.24h 09/23/18 Pantoprazole Sodium [Protonix -] 40 mg PO DAILY #30 tablet.ec 09/23/18
[2018-09-23 17:05] VITALS: BP 143/76; PULSE 74; TEMP 98.2
[2018-09-23] MEDS ORDERED: ROSUVASTATIN CA 20 MG TABLET (FP) PO SCH (22:00)
== END 2018-09-23 17:45 | disposition home or self-care (01) ==
LOC: JER 21:57 → JERBED 09-23 04:17
PROVIDERS: ADMIT Internal Medicine; ATTEND Internal Medicine
PROC: 3E033GC Introduction of Other Therapeutic Substance into Peripheral Vein, Percutaneous Approach (ICD-10-PCS; principal; 2018-09-23)
DX: R07.89 Other chest pain (principal); I10 Essential (primary) hypertension; E78.5 Hyperlipidemia, unspecified; I25.10 Atherosclerotic heart disease of native coronary artery without angina pectoris; K76.0 Fatty (change of) liver, not elsewhere classified; K21.9 Gastro-esophageal reflux disease without esophagitis; E03.9 Hypothyroidism, unspecified; D69.6 Thrombocytopenia, unspecified; Z85.46 Personal history of malignant neoplasm of prostate; Z95.5 Presence of coronary angioplasty implant and graft
CPT/HCPCS: 36415; 71046-TC-FY; 78452-TC; 80053; 82550; 83690; 83880; 84484; 85025; 85610; 93005; 93010; 93017; 96374; 99284-25; A9502; G0378; J2785

== ENCOUNTER 2022-08-26 20:25 | Emergency (ER) | payer OTHER, BC ==
[2022-08-26 20:42] VITALS: BP 151/56; PULSE 56; RESP 19; TEMP 98.1; BMI 25.0
[2022-08-26] MEDS ORDERED: TETANUS AND DIPHTHERIA TOXOID 0.5 ML DISP.SYRIN IM ONE (21:45)
[2022-08-26] MEDS ORDERED: DIPHTH,PERTUSS(ACELL),TET 0.5 ML DISP.SYRIN IM ONE (22:38)
== END 2022-08-26 23:56 | disposition home or self-care (01) ==
LOC: JER 20:25
PROC: 3E0234Z Introduction of Serum, Toxoid and Vaccine into Muscle, Percutaneous Approach (ICD-10-PCS; principal; 2022-08-26)
DX: S00.83XA Contusion of other part of head, initial encounter (principal); W01.0XXA Fall on same level from slipping, tripping and stumbling without subsequent striking against object, initial encounter
CPT/HCPCS: 70450-TC; 70486-TC; 72125-TC; 99285-25

== ENCOUNTER 2023-11-05 03:55 | Day surgery (SDC) | payer OTHER, BC ==
[2023-11-03 12:47] VITALS: BMI 25.8
[~2023-11-05 03:55] MED LIST: ACETAMINOPHEN 325 MG TABLET (FP) PO PRN; BSS (NA/CA/MG/K) BALANCED SALT SOLUTION OPHTH SOLN 15 ML BOTTLE OD ONE; CHONDROITIN SU A/HYALUR SOD 1 KIT IO ONE; EPINEPHrine/PF 1 MG/1 ML (1:1,000) AMPULE SQ ONE; LIDOCAINE HCL 1% PRESERVATIVE FREE - 30ML VIAL IO ONE; POVIDONE-IODINE 5% OPHTHALMIC PREP 30 ML SOLUTION OD ONE; TETRACAINE 0.5% OPHTH SOLN 2 ML BOTTLE TP ONE
[2023-11-05] MEDS ORDERED: BSS (NA/CA/MG/K) BALANCED SALT SOLUTION OPHTH SOLN 15 ML BOTTLE ONE (07:42)
[2023-11-05] MEDS ORDERED: EPINEPHrine/PF 1 MG/1 ML (1:1,000) AMPULE ONE (07:42)
[2023-11-05] MEDS ORDERED: TETRACAINE 0.5% OPHTH SOLN 2 ML BOTTLE ONE (07:42)
[2023-11-05] MEDS ORDERED: POVIDONE-IODINE 5% OPHTHALMIC PREP 30 ML SOLUTION ONE (07:43)
[2023-11-05] MEDS ORDERED: LIDOCAINE HCL/PF 1% SDV 5ML VIAL ONE (07:47)
[2023-11-05] MEDS ORDERED: OFLOXACIN 0.3% OPHTHALMIC SOLUTION 5 ML BOTTLE ONE (07:59)
[2023-11-05] MEDS ORDERED: KETOROLAC TROMETHAMINE 0.5% EYE DROP 1 DROP DROPS ONE (07:59)
[2023-11-05] MEDS ORDERED: PHENYLEPHRINE 2.5% OPTHALMIC DROP 2ML BOTTLE ONE (07:59)
[2023-11-05] MEDS ORDERED: TROPICAMIDE 1% OPHTH SOLN 15 ML BOTTLE ONE (07:59)
[2023-11-05] MEDS ORDERED: CYCLOPENTOLATE HCL 1% OPHTH SOLN 2 ML BOTTLE ONE (07:59)
[2023-11-05] MEDS: KETOROLAC TROMETHAMINE 0.5% EYE DROP 1 DROP DROPS OP SCH ×3 (08:15→08:45)
[2023-11-05] MEDS: TROPICAMIDE 1% OPHTH SOLN 15 ML BOTTLE OP SCH ×3 (08:15→08:45)
[2023-11-05] MEDS: CYCLOPENTOLATE HCL 1% OPHTH SOLN 2 ML BOTTLE OP SCH ×3 (08:15→08:45)
[2023-11-05] MEDS: PHENYLEPHRINE 2.5% OPHTH SOLN 15 ML BOTTLE OP SCH ×3 (08:16→08:45)
[2023-11-05] MEDS: OFLOXACIN 0.3% OPHTHALMIC SOLUTION 5 ML BOTTLE OP SCH ×3 (08:16→08:45)
[2023-11-05] MEDS ORDERED: MIDAZOLAM HCL 2 MG/2 ML SINGLE DOSE VIAL ONE (10:01)
[2023-11-05] MEDS ORDERED: TETRACAINE 0.5% OPHTH SOLN 2 ML BOTTLE TP ONE (10:03)
[2023-11-05] MEDS ORDERED: POVIDONE-IODINE 5% OPHTHALMIC PREP 30 ML SOLUTION OD ONE (10:06)
[2023-11-05] MEDS ORDERED: BSS (NA/CA/MG/K) BALANCED SALT SOLUTION OPHTH SOLN 15 ML BOTTLE OD ONE (10:12)
[2023-11-05] MEDS ORDERED: CHONDROITIN SU A/HYALUR SOD 1 KIT IO ONE (10:12)
[2023-11-05] MEDS ORDERED: LIDOCAINE HCL 1% PRESERVATIVE FREE - 30ML VIAL IO ONE (10:12)
[2023-11-05] MEDS ORDERED: EPINEPHrine/PF 1 MG/1 ML (1:1,000) AMPULE SQ ONE (10:33)
[2023-11-05 11:08] VITALS: RESP 20
[2023-11-05 11:55] VITALS: BP 160/70; PULSE 52; TEMP 97.8
== END 2023-11-05 11:30 | disposition home or self-care (01) ==
LOC: JASU-SURG 03:55
PROVIDERS: ATTEND Ophthalmology
PROC: 08RJ3JZ Replacement of Right Lens with Synthetic Substitute, Percutaneous Approach (ICD-10-PCS; principal; 2023-11-05 10:00)
DX: H26.9 Unspecified cataract (principal)
CPT/HCPCS: V2632

== ENCOUNTER 2023-12-31 04:26 | Day surgery (SDC) | payer OTHER, BC ==
[2023-12-29 15:51] VITALS: BMI 25.8
[~2023-12-31 04:26] MED LIST changes: -BSS (NA/CA/MG/K) BALANCED SALT SOLUTION OPHTH SOLN 15 ML BOTTLE OD ONE; -CHONDROITIN SU A/HYALUR SOD 1 KIT IO ONE; +CYCLOPENTOLATE HCL 1% OPHTH SOLN 2 ML BOTTLE OP SCH; -LIDOCAINE HCL 1% PRESERVATIVE FREE - 30ML VIAL IO ONE; -POVIDONE-IODINE 5% OPHTHALMIC PREP 30 ML SOLUTION OD ONE; -TETRACAINE 0.5% OPHTH SOLN 2 ML BOTTLE TP ONE
[2023-12-31] MEDS ORDERED: LIDOCAINE HCL/PF 1% SDV 5ML VIAL ONE (07:27)
[2023-12-31] MEDS ORDERED: BUPIVACAINE HCL/PF 0.75% 10 ML VIAL ONE (07:28)
[2023-12-31] MEDS ORDERED: LIDOCAINE HCL/PF 2% SDV 5ML VIAL ONE (07:28)
[2023-12-31] MEDS ORDERED: TETRACAINE 0.5% OPHTH SOLN 2 ML BOTTLE ONE (07:29)
[2023-12-31] MEDS ORDERED: POVIDONE-IODINE 5% OPHTHALMIC PREP 30 ML SOLUTION ONE (07:29)
[2023-12-31] MEDS ORDERED: PHENYLEPHRINE 2.5% OPTHALMIC DROP 2ML BOTTLE ONE (08:22)
[2023-12-31] MEDS ORDERED: TROPICAMIDE 1% OPHTH SOLN 15 ML BOTTLE ONE (08:23)
[2023-12-31] MEDS ORDERED: KETOROLAC TROMETHAMINE 0.5% EYE DROP 1 DROP DROPS ONE (08:23)
[2023-12-31] MEDS ORDERED: CYCLOPENTOLATE HCL 1% OPHTH SOLN 2 ML BOTTLE ONE (08:23)
[2023-12-31] MEDS ORDERED: OFLOXACIN 0.3% OPHTHALMIC SOLUTION 5 ML BOTTLE ONE ×2 (08:23→08:27)
[2023-12-31 08:36] VITALS: RESP 18
[2023-12-31] MEDS ORDERED: TROPICAMIDE 0.5% OPHTHALMIC SOLN 15 ML BOTTLE OS ONE (08:40)
[2023-12-31] MEDS ORDERED: OFLOXACIN 0.3% OPHTHALMIC SOLUTION 5 ML BOTTLE OS ONE ×3 (08:40→08:50)
[2023-12-31] MEDS ORDERED: CYCLOPENTOLATE HCL 1% OPHTH SOLN 2 ML BOTTLE OS ONE ×3 (08:40→08:50)
[2023-12-31] MEDS ORDERED: KETOROLAC TROMETHAMINE 0.5% EYE DROP 1 DROP DROPS OS ONE ×3 (08:40→08:50)
[2023-12-31] MEDS ORDERED: PHENYLEPHRINE 2.5% OPHTH SOLN 15 ML BOTTLE OS ONE ×3 (08:40→08:50)
[2023-12-31] MEDS ORDERED: TROPICAMIDE 1% OPHTH SOLN 15 ML BOTTLE OS ONE ×2 (08:45→08:50)
[2023-12-31] MEDS ORDERED: PHENYLEPHRINE 2.5% OPHTH SOLN 15 ML BOTTLE OP SCH (09:15)
[2023-12-31] MEDS ORDERED: KETOROLAC TROMETHAMINE 0.5% EYE DROP 1 DROP DROPS OP SCH (09:15)
[2023-12-31] MEDS ORDERED: OFLOXACIN 0.3% OPHTHALMIC SOLUTION 5 ML BOTTLE OP SCH (09:15)
[2023-12-31] MEDS ORDERED: TROPICAMIDE 1% OPHTH SOLN 15 ML BOTTLE OP SCH (09:15)
[2023-12-31] MEDS ORDERED: ONDANSETRON 4 MG/2 ML VIAL ONE (09:52)
[2023-12-31] MEDS ORDERED: MIDAZOLAM HCL 2 MG/2 ML SINGLE DOSE VIAL ONE (09:52)
[2023-12-31] MEDS ORDERED: TETRACAINE 0.5% OPHTH SOLN 2 ML BOTTLE OS ONE (09:59)
[2023-12-31] MEDS ORDERED: POVIDONE-IODINE 5% OPHTHALMIC PREP 30 ML SOLUTION OS ONE (10:00)
[2023-12-31] MEDS ORDERED: LIDOCAINE HCL 1% PRESERVATIVE FREE - 30ML VIAL IO ONE (10:07)
[2023-12-31] MEDS ORDERED: BSS (NA/CA/MG/K) BALANCED SALT SOLUTION OPHTH SOLN 15 ML BOTTLE OS ONE (10:18)
[2023-12-31] MEDS ORDERED: CHONDROITIN SU A/HYALUR SOD 1 KIT IO ONE (10:18)
[2023-12-31] MEDS ORDERED: EPINEPHrine/PF 1 MG/1 ML (1:1,000) AMPULE SQ ONE (10:23)
[2023-12-31 12:14] VITALS: BP 134/56; PULSE 53; TEMP 97.9
== END 2023-12-31 11:37 | disposition home or self-care (01) ==
LOC: JASU-SURG 04:26
PROVIDERS: ATTEND Ophthalmology
PROC: 08RK3JZ Replacement of Left Lens with Synthetic Substitute, Percutaneous Approach (ICD-10-PCS; principal; 2023-12-31 10:00)
DX: H26.9 Unspecified cataract (principal)
CPT/HCPCS: V2632